=== PATIENT | female | born 2000 | race Two or more races ===

== ENCOUNTER 2021-11-28 21:32 | Emergency (ER) | payer MEDICAID, SELFPAY ==
--- NOTE | ~2021-11-28 | XR_ITS ---
EXAMINATION: XR KNEE, LEFT CLINICAL INFORMATION: Knee pain COMPARISON: Left knee radiographs 11/29/2013 TECHNIQUE: Four views of the left knee. FINDINGS: Mild irregularity of the subchondral bone plate at the site of a prior osteochondral injury of the lateral femoral condyle. No acute fracture, dislocation, or knee joint effusion. Joint spaces appear maintained. No osteophyte formation or osseous lesion. XR/XR knee LT 4V IMPRESSION: 1. No acute osseous injury or joint effusion. 2. Mild irregularity of the subchondral bone plate in the weightbearing lateral femoral condyle at the site of the previous osteochondral injury in 2013.
[2021-11-28 21:43] VITALS: BP 130/93; PULSE 88; RESP 20; TEMP 36.7; O2SAT 99; BMI 22.3
[2021-11-28] MEDS: Acetaminophen 325 MG TABLET 650 MG PO (21:48)
--- NOTE | 2021-11-29 00:33 | ED_ITS ---
HPI - Extremity Injury (Lower) General Chief Complaint: Extremity Injury, Lower Stated Complaint: fall - knee pain Time Seen by Provider: 11/29/21 00:24 Source: patient Mode of arrival: ambulatory Limitations: no limitations History of Present Illness HPI Narrative: 21-year-old female here with left knee pain after twisting her knee while dancing 2 days ago. Since then pain and swelling that is worsened with weight- bearing. No numbness, tingling, weakness, redness or warmth. Related Data Allergies Allergy/AdvReac Type Severity Reaction Status Date / Time No Known Allergies Allergy Verified 11/28/21 21:47 Review of Systems Review of Systems: Yes all other systems are reviewed and are negative Constitutional: Constitutional: Reports no additional constitutional complaints, Denies body ache(s), Denies chills, Denies fever(s), Denies headache(s) and Denies weakness Eyes: Eyes: Reports no additional eye complaints and Denies change in vision ENT: Reports system reviewed and no additional complaints, except as documented, Denies dizziness, Denies headache(s), Denies nasal congestion, Denies nasal discharge and Denies neck pain Cardiovascular: Cardiovascular: Reports no additional cardiovascular complaints, Denies chest pain, Denies leg edema and Denies dyspnea Respiratory: Respiratory: Reports no additional respiratory complaints, Denies cough and Denies dyspnea Gastrointestinal: Gastrointestinal: Reports no additional gastrointestinal complaints, Denies abdominal pain, Denies diarrhea, Denies nausea and Denies vomiting Genitourinary: Genitourinary: Reports no additional female genitourinary complaints and Denies urinary incontinence Musculoskeletal: Musculoskeletal: Reports no additional musculoskeletal complaints, Denies back pain, Reports arthralgias, Denies joint swelling, Denies neck pain, Denies numbness and Denies tingling Integumentary/Breasts: Skin/Breast: Reports system reviewed and no additional complaints, except as docu and Denies rash Neurologic: Reports system reviewed and no additional complaints, except as documented, Denies Abnormal speech present, Denies dizziness, Denies headache(s), Denies numbness, Denies tingling and Denies weakness PMFSH Past Medical History Attestation statement: The following information was validated with the patient. Source: old records reviewed and nursing notes reviewed Social History Social History Advance Directives: No Advance Directives Information Provided: Yes Physical Exam Vital Signs: Vital Signs: Last Vital Signs Temp 98.1 F 11/28/21 21:43 Pulse 88 11/28/21 21:43 Resp 20 11/28/21 21:43 BP 130/93 H 11/28/21 21:43 Pulse Ox 99 11/28/21 21:43 O2 Del Method 11/28/21 21:43 BMI result Body Mass Index 22.3 Const: General: cooperative, healthy appearing, comfortable and no acute distress Orientation/consciousness: patient oriented x3 Limitations: no limitations HEENT: Head: Yes normal to inspection Ears: hearing grossly normal bilaterally Eyes: General: appearance normal, both eyes and all related structures Resp: Effort & Inspection: normal respiratory effort Cardio: Peripheral pulses: Peripheral pulses 2+ throughout Neuro: General: patient oriented x3, moves all extremities, no focal motor def icits and normal sensation to monofilament Cognition (Neuro): normal cognition Speech: No Abnormal speech present Gait exam (Neuro): Normal gait present Extrem: Other: There is tenderness the left lateral and medial knee. There is slight swelling. There is full range of motion. There is no ligamental laxity. There is no warmth or redness. Neurovascularly intact distally General: Yes normal to inspection Course Course Course Narrative: X-ray show no acute bony abnormality. Likely sprain. Patient placed in Román wra p and given crutches for home. Reviewed rice. Reviewed worrisome signs and symptoms of when to return to the emergency department. Comfortable discharge home. MDM - Extremity Injury (Lower) MDM Narrative Medical decision making narrative: 21-year-old female here with left knee pain after twisting injury 2 days ago. Will check x-rays Medical Records Attestation: I reviewed the patient's medical records. Lab Data Attestation: I reviewed the patient's lab results. Imaging Data knee xraay: Attestation: I personally reviewed and interpreted this imaging study as follows: Radiologist's impression: [address] [address] XRay Report Signed Patient: Elke Corcoran MR#: [id number] : 2000 Acct:[id number] Age/Sex: 21 / F ADM Date: 11/28/21 Loc: HO.ED Attending Dr: Ordering Physician: Linette ED Physician Date of Service: 11/28/21 Procedure(s): XR knee LT 4V Accession Number(s): [id number] cc: Generic ED Physician~ EXAMINATION: XR KNEE, LEFT CLINICAL INFORMATION: Knee pain? COMPARISON: Left knee radiographs 11/29/2013? TECHNIQUE: Four views of the left knee. FINDINGS: Mild irregularity of the subchondral bone plate at the site of a prior osteochondral injury of the lateral femoral condyle. No acute fracture, dislocation, or knee joint effusion. Joint spaces appear maintained. No osteophyte formation or osseous lesion.? XR/XR knee LT 4V IMPRESSION: ? 1. No acute osseous injury or joint effusion. 2. Mild irregularity of the subchondral bone plate in the weightbearing lateral femoral condyle at the site of the previous osteochondral injury in 2013. ? Procedures Procedure Narrative Procedure Narrative: Román wrap, crutches Discharge Plan Discharge Clinical Impression: Knee sprain Patient Disposition: Home, Self-Care Instructions: Knee Sprain (ED) Additional Instructions: Rest Ice, elevate the limb Motrin for pain as needed Limit weight-bearing until able to bear weight without experiencing any pain Referrals: [facility] [Primary Care Provider] - 1 week (For persistent symptoms) Interventions: ED Discharge Assessment Last Done: 11/29/21 00:48
== END 2021-11-29 01:06 | disposition home or self-care (01) ==
PROVIDERS: Emergency Provider Emergency Medicine
DX: S83.92XA Sprain of unspecified site of left knee, initial encounter (principal); M25.562 Pain in left knee; X50.1XXA Overexertion from prolonged static or awkward postures, initial encounter; Y93.9 Activity, unspecified; Y92.9 Unspecified place or not applicable; Y99.9 Unspecified external cause status
CPT/HCPCS: 73564; 99283

== ENCOUNTER 2021-12-13 13:20 | Emergency (ER) | payer MEDICAID, SELFPAY ==
--- NOTE | ~2021-12-13 | XR_ITS ---
EXAMINATION: XR CHEST CLINICAL INFORMATION: Cough with sputum COMPARISON: None TECHNIQUE: 2 views of the chest were obtained. FINDINGS: Suspected mild bronchial wall thickening in the right lower lung. The lungs are otherwise clear. No airspace consolidation, pleural effusion, or pneumothorax. The cardiomediastinal silhouette is within normal limits. No acute osseous injury. XR/XR chest 2V IMPRESSION: 1. Suspected mild bronchial wall thickening in the right lower lung lung. No airspace consolidation or pleural effusions.
[2021-12-13 14:48] VITALS: BP 133/83; PULSE 89; RESP 18; TEMP 36.8; O2SAT 99; BMI 23.3
[2021-12-13 15:03] LABS: MANUAL DIFF FLAG NO
[2021-12-13 15:07] LABS: Basophils Percent Auto 0.3 % (0-2); Eosinophils Absolute Auto 0.1 X10*3/uL (0.0-0.4); Eosinophils Percent Auto 0.8 % (0-4); Hematocrit 34.1 % (37.0-47.0); Hemoglobin 10.4 g/dl (12.0-16.0); Imm Gran Abs Auto 0.03 X10*3/uL (0.00-0.03); Imm Gran Pct Auto 0.3 % (0.0-0.4); Lymphocytes Absolute Auto 3.1 X10*3/uL (1.2-4.9); Lymphocytes Percent Auto 26.2 % (20-40); Mean Corpuscular HGB Conc 30.5 g/dl (31.0-35.0); Mean Corpuscular Hemoglobin 22.1 pg (27.0-33.0); Mean Corpuscular Volume 72.6 fL (80.0-98.0); Mean Platelet Volume 10.8 fL (9.4-12.3); Monocytes Absolute Auto 0.7 X10*3/uL (0.1-1.2); Monocytes Percent Auto 6.2 % (2-11); Neutrophils Percent Auto 66.2 % (45-73); Platelet Count 264 X10*3/uL (160-400); Red Cell Distribution Width 17.2 % (11.0-16.0)
[2021-12-13 15:15] LABS: Strep A Nucleic Acid Negative (Negative)
[2021-12-13 15:18] LABS: Anion Gap 12 (12-20); Blood Urea Nitrogen 9 mg/dL (9-16); Calcium 9.1 mg/dL (8.4-10.2); Carbon Dioxide 23 mmol/L (22-29); Chloride 105 mmol/L (96-108); Creatinine Clr Calc Pharmacy 99.4; Estimated Glomerular Filt Rate > 60; Glucose Random 117 mg/dL (60-115); Potassium 3.8 mmol/L (3.3-5.1); Sodium 136 mmol/L (135-145)
[2021-12-13 15:20] LABS: COVID-19 Test Negative (Negative); IDNOW Serial# 16C4AD1C; Influenza A Negative (Negative); Influenza B2 Negative (Negative)
--- NOTE | 2021-12-13 18:05 | ED.URI ---
HPI - URI/Sore Throat General Chief Complaint: Upper Respiratory Symptoms Stated Complaint: Fever/Nausea Time Seen by Provider: 12/13/21 16:05 History of Present Illness HPI Narrative: Patient complains of mild sore throat, cough, sputum for several days, intermittent episodes of wheezing and chest tightness, but no shortness of breath or chest tightness now no chest pain, in addition there was 1 episode of vomiting after a coughing spell but otherwise no nausea vomiting diarrhea or abdominal pain Related Data Previous Rx's Medication Instructions Recorded acetaminophen 500 mg tablet 1,000 mg PO QID PRN pain or fever 12/13/21 #30 tabs albuterol sulfate 90 mcg/actuation 2 puff inhalation Q4-6H PRN 12/13/21 aerosol inhaler shortness of breath or wheezing #6.7 grams azithromycin 250 mg tablet 250 mg PO DAILY 4 days #4 tabs 12/13/21 (Zithromax) prednisone 20 mg tablet 60 mg PO DAILY 3 days #9 tabs 12/13/21 Allergies Allergy/AdvReac Type Severity Reaction Status Date / Time No Known Allergies Allergy Verified 12/13/21 14:48 Review of Systems Review of Systems: Positive for cough runny nose sputum sore throat Negative no fever no chills no dizziness no weakness no fainting no feeling faint no headache no stiff neck no chest pain no shortness of breath now no abdominal pain no nausea vomiting or diarrhea no dysuria no skin rash Yes all other systems are reviewed and are negative [facility] Past Medical History Source: nursing notes reviewed Social History Social History Advance Directives: No Advance Directives Information Provided: Yes Physical Exam Vital Signs: Vital Signs: Last Vital Signs Temp 98.3 F 12/13/21 14:48 Pulse 89 12/13/21 14:48 Resp 18 12/13/21 14:48 BP 133/83 12/13/21 14:48 Pulse Ox 99 12/13/21 14:48 O2 Del Method 12/13/21 14:48 BMI result Body Mass Index 23.3 General appearance no acute distress The eyes no redness or discharge The sinuses nontender The pharynx is clear without redness swelling or exudate mucous membranes are moist, voice is normal Neck is supple Respiratory no distress Chest clear to auscultation bilateral Heart no murmur Abdomen soft nontender Extremities for range of motion x4 Skin no rashes Course Course Course Narrative: CBC showed a mild anemia which patient said is pre-existing and she does take iron supplementation COVID test negative, flu test negative, strep throat test negative Chest x-ray showed suspected bronchial wall thickening consistent with either reactive airway disease or infection Patient is prescribed inhaler, started on prednisone and given an antibiotic and will return for any worse difficulty breathing or any problem On discharge she is breathing comfortably and well-appearing MDM - URI/Sore Throat Lab Data Attestation: I reviewed the patient's lab results. Result diagrams: 12/13/21 14:54 12/13/21 14:54 Labs: Lab Results 12/13/21 12/13/21 12/13/21 Range/Units 14:54 14:54 14:54 WBC 12.0 H (4.8-10.8) X10*3/uL RBC 4.70 (4.20-5.50) X10*6/uL Hgb 10.4 L (12.0-16.0) g/dl Hct 34.1 L (37.0-47.0) % MCV 72.6 L (80.0-98.0) fL MCH 22.1 L (27.0-33.0) pg MCHC 30.5 L (31.0-35.0) g/dl RDW 17.2 H (11.0-16.0) % Plt Count 264 (160-400) X10*3/uL MPV 10.8 (9.4-12.3) fL Immature Gran % (Auto) 0.3 (0.0-0.4) % Neut % (Auto) 66.2 (45-73) % Lymph % (Auto) 26.2 (20-40) % Maverick % (Auto) 6.2 (2-11) % Eos % (Auto) 0.8 (0-4) % Baso % (Auto) 0.3 (0-2) % Lymph # (Auto) 3.1 (1.2-4.9) X10*3/uL Maverick # (Auto) 0.7 (0.1-1.2) X10*3/uL Eos # (Auto) 0.1 (0.0-0.4) X10*3/uL Baso # (Auto) 0.0 (0.0-0.2) X10*3/uL Abs Immat Gran (auto) 0.03 (0.00-0.03) X10*3/uL Absolute Neuts (auto) 8.0 (2.0-8.3) x10*3/uL Absolute Nucleated RBC 0.000 (0.0-0.012) X10*3/uL Nucleated RBC % (auto) 0.0 (0.0-0.2) /100WBC Sodium 136 (135-145) mmol/L Potassium 3.8 (3.3-5.1) mmol/L Chloride 105 (96-108) mmol/L Carbon Dioxide 23 (22-29) mmol/L Anion Gap 12 (12-20) BUN 9 (9-16) mg/dL Creatinine 0.76 (0.5-1.4) mg/dL Estim Creat Clear Calc 99.4 Estimated GFR > 60 Random Glucose 117 H (60-115) mg/dL Calcium 9.1 (8.4-10.2) mg/dL COVID-19 ([facility]) (Negative) COVID-19 Clin Com Influenza Type A (RADHA) Negative (Negative) Influenza Type B (RADHA) Negative (Negative) Influenza A & B Note See Note S. pyogenes GrpA RADHA (Negative) 12/13/21 12/13/21 Range/Units 14:54 14:54 WBC (4.8-10.8) X10*3/uL RBC (4.20-5.50) X10*6/uL Hgb (12.0-16.0) g/dl Hct (37.0-47.0) % MCV (80.0-98.0) fL MCH (27.0-33.0) pg MCHC (31.0-35.0) g/dl RDW (11.0-16.0) % Plt Count (160-400) X10*3/uL MPV (9.4-12.3) fL Immature Gran % (Auto) (0.0-0.4) % Neut % (Auto) (45-73) % Lymph % (Auto) (20-40) % Maverick % (Auto) (2-11) % Eos % (Auto) (0-4) % Baso % (Auto) (0-2) % Lymph # (Auto) (1.2-4.9) X10*3/uL Maverick # (Auto) (0.1-1.2) X10*3/uL Eos # (Auto) (0.0-0.4) X10*3/uL Baso # (Auto) (0.0-0.2) X10*3/uL Abs Immat Gran (auto) (0.00-0.03) X10*3/uL Absolute Neuts (auto) (2.0-8.3) x10*3/uL Absolute Nucleated RBC (0.0-0.012) X10*3/uL Nucleated RBC % (auto) (0.0-0.2) /100WBC Sodium (135-145) mmol/L Potassium (3.3-5.1) mmol/L Chloride (96-108) mmol/L Carbon Dioxide (22-29) mmol/L Anion Gap (12-20) BUN (9-16) mg/dL Creatinine (0.5-1.4) mg/dL Estim Creat Clear Calc Estimated GFR Random Glucose (60-115) mg/dL Calcium (8.4-10.2) mg/dL COVID-19 ([facility]) Negative (Negative) COVID-19 Clin Com See Note Influenza Type A (RADHA) (Negative) Influenza Type B (RADHA) (Negative) Influenza A & B Note S. pyogenes GrpA RADHA Negative (Negative) Discharge Plan Discharge Clinical Impression: Bronchitis Patient Disposition: Home, Self-Care Additional Instructions: If you feel chest tightness or wheezing try the albuterol We gave a few days of steroid to reduce inflammation in her chest Zithromax antibiotic for bronchitis Return any time difficulty breathing any worse condition or any concerns If symptoms continue follow with your doctor Prescriptions: New azithromycin [Zithromax] 250 mg tablet 250 mg PO DAILY 4 Days Qty: 4 0RF Rx Instructions: start on day 2 of therapy acetaminophen 500 mg tablet 1,000 mg PO QID PRN (Reason: pain or fever) Qty: 30 0RF albuterol sulfate 90 mcg/actuation HFA aerosol inhaler 2 puff inhalation Q4-6H PRN (Reason: shortness of breath or wheezing) Qty: 6.7 0RF prednisone 20 mg tablet 60 mg PO DAILY 3 Days Qty: 9 0RF Interventions: ED Discharge Assessment Last Done: 12/13/21 18:50 Discharge Date/Time: 12/13/21 18:50
[2021-12-13] MEDS: Azithromycin 500 MG TABLET PO (18:18)
[2021-12-13] MEDS: predniSONE 20 MG TABLET 60 MG PO (18:18)
== END 2021-12-13 18:50 | disposition home or self-care (01) ==
PROVIDERS: Emergency Provider Emergency Medicine
DX: J40 Bronchitis, not specified as acute or chronic (principal); R50.9 Fever, unspecified; R05.9 Cough, unspecified; Z20.822 Contact with and (suspected) exposure to COVID-19; Z79.899 Other long term (current) drug therapy
CPT/HCPCS: 71046; 80048; 85025; 87502; 87635; 87651; 99283

== ENCOUNTER 2023-01-23 15:46 | Emergency (ER) | payer MEDICAID, SELFPAY ==
[2023-01-23 16:14] VITALS: BP 121/75; PULSE 71; RESP 16; TEMP 36.6; O2SAT 99; BMI 22.9
--- NOTE | 2023-01-23 16:59 | ED_ITS ---
HPI - General Adult General Chief complaint: Allergic Reaction Stated complaint: rash on body Time Seen by Provider: 01/23/23 16:59 Source: patient and old records reviewed Mode of arrival: ambulatory Limitations: no limitations History of Present Illness HPI narrative: Patient is a 22 year old assigned female at with a history of asthma presenting to the emergency department today with a rash to her arms and neck after using head and shoulder shampoo 4 days ago. Patient states that she has had a rash to her bilateral arms and neck after using head and shoulders 4 days ago. Patient states that she also feels more wheezy lately and does not have an inhaler at home. Patient denies any dizziness, lightheadedness, abdominal pain, nausea, vomiting, fever, chills, blurry vision, double vision, loss of vision, chest pain, difficulty breathing, shortness of breath, back pain, night sweats, pain with urination, increased urinary frequency, increased urinary urgency, blood in her urine or stool, syncope or a near syncopal episode, recent trauma or falls, bowel incontinence, bladder incontinence, bowel retention, bladder retention, or any other complaints at this time. Onset (ago): day(s) (4) Location: neck, left, right and upper extremity Severity: mild Severity scale (1-10): 3 Relieving factors: none Exacerbating factors: none Associated symptoms: rash Treatments prior to arrival: none Related Data Previous Rx's Medication Instructions Recorded acetaminophen 500 mg tablet 1,000 mg PO QID PRN pain or fever 12/13/21 #30 tabs albuterol sulfate 90 mcg/actuation 2 puff inhalation Q4-6H PRN 12/13/21 aerosol inhaler shortness of breath or wheezing #6.7 grams azithromycin 250 mg tablet 250 mg PO DAILY 4 days #4 tabs 12/13/21 (Zithromax) prednisone 20 mg tablet 60 mg PO DAILY 3 days #9 tabs 12/13/21 albuterol sulfate 90 mcg/actuation 1 inh inhalation QID PRN shortness 01/23/23 aerosol inhaler of breath or wheezing #8.5 grams prednisone 20 mg tablet 20 mg PO DAILY 7 days #7 tabs 01/23/23 Allergies Allergy/AdvReac Type Severity Reaction Status Date / Time No Known Allergies Allergy Verified 12/13/21 14:48 Review of Systems Constitutional: Constitutional: Reports no additional constitutional complaints, Denies chills, Denies fever(s) and Denies night sweats Eyes: Eyes: Reports no additional eye complaints, Denies blurry vision, Denies change in vision, Denies diplopia, Denies eye discharge, Denies loss of vision and Denies eye pain ENT: Denies dizziness Cardiovascular: Cardiovascular: Reports no additional cardiovascular complaints, Denies chest pain, Denies lightheadedness, Denies Loss of Consciousness and Denies dyspnea Respiratory: Respiratory: Reports no additional respiratory complaints, Denies dyspnea and Reports wheezing Gastrointestinal: Gastrointestinal: Reports no additional gastrointestinal complaints, Denies abdominal pain, Denies melena, Denies hematochezia, Denies change in bowel habits and Denies change in stool character Genitourinary: Genitourinary: Denies hematuria, Denies urinary frequency, Denies dysuria, Denies urinary incontinence, Denies urinary hesitancy and Denies urinary urgency Musculoskeletal: Musculoskeletal: Reports no additional musculoskeletal complaints, Denies numbness and Denies tingling Integumentary/Breasts: Comments: rash to bilateral upper extremities and neck Neurologic: Denies dizziness, Denies loss of vision, Denies numbness and Denies tingling Psychiatric: Psychiatric: Reports no additional psychiatric complaints Endocrine: Endocrine: Reports no additional endocrine complaints Hematologic/Lymphatic: Hematologic/Lymphatic: Reports no additional hematologic/lymphatic complaints Allergic/Immunologic: Allergic/Immunologic: Reports no additional allergic/immunologic complaints and Reports wheezing PMFSH Past Medical History Attestation statement: The following information was validated with the patient. Source: old records reviewed and nursing notes reviewed Social History Social History Advance Directives: No Advance Directives Information Provided: Yes Physical Exam ED Vital Signs: Vital Signs - 24 hr 01/23/23 16:14 Temperature 97.9 F Pulse Rate 71 Respiratory Rate 16 Blood Pressure 121/75 Pulse Oximetry 99 Oxygen Delivery Method Room Air BMI result Body Mass Index 22.9 Const General: cooperative, no acute distress, alert and awake Nutritional Appearance: well nourished Orientation/consciousness: patient oriented x3 Limitations: no limitations HENMT Head: Yes normal to inspection and Yes atraumatic Ears: hearing grossly normal bilaterally and external ears normal General nose exam: Normal external nose present, no nasal discharge noted and no epistaxis Face and sinus: Yes normal facial exam, No abrasion and No laceration Mouth: Normal oral and palatal mucosa present, no drooling and no muffled voice Eyes General: appearance normal, both eyes and all related structures Periorbital: periorbital findings normal Eyelids: Yes eyelids normal Conjunctivae: conjunctivae normal Pupils: Equal, round and reactive pupils present EOM: EOMs intact bilaterally Neck Neck: Yes normal visual inspection, Yes full ROM and Yes no lymphadenopathy Chest Chest palpation & inspection: normal inspection of the chest Resp Effort & Inspection: normal respiratory effort and able to speak in complete sentences Auscultation: wheezes throughout Cardio Rate: regular rate Rhythm: regular rhythm GI Inspection: Yes normal to inspection Skin Other: contact dermatitis present to the bilateral upper extremities and neck Neuro General: patient oriented x3 and moves all extremities Cranial nerves: Yes Equal, round and reactive pupils present Cognition (Neuro): normal cognition Motor exam (neuro): 5/5 motor strength present throughout Sensory Exam: Normal double simultaneous stimulation for sensation Coordination: [id number] test normal Extrem General: Yes normal to inspection, Yes full ROM and Yes capillary refill normal Psych Appearance: grossly normal Mental Status: mental status grossly normal Affect: normal affect Attitude: cooperative Thought process: Normal thought process present Thought content: Normal thought content present Insight: Good insight present (Psych) Medications Administered Discontinued Medications Generic Name Dose Route Start Last Admin Trade Name Brie PRN Reason Stop Dose Admin Albuterol Sulfate 2 puff 01/23/23 17:03 01/23/23 17:18 Albuterol Sulfate 90 Mcg 8 Gm Inhaler INHALE 01/23/23 17:04 2 puff ONCE ONE Administration Diphenhydramine HCl 25 mg 01/23/23 17:03 01/23/23 17:17 Diphenhydramine Hcl 25 Mg Capsule PO 01/23/23 17:04 25 mg ONCE ONE Administration Methylprednisolone Sodium Succinate 60 mg 01/23/23 17:03 01/23/23 17:17 Methylprednisolone Sod Succ 125 Mg/2 Ml Vial IVPUSH 01/23/23 17:04 60 mg ONCE ONE Administration Medical Decision Making Medical Decision Making MDM Narrative: Patient is a 22 year old assigned female at with a history of asthma presenting to the emergency department today with wheezing and a rash. Patient's physical exam was as noted in the physical exam portion of this note. I explained my physical exam findings to the patient. I answered all questions asked by the patient. Patient received solu-medrol, benadryl, and an albuterol inhaler while in the department which she stated helped her symptoms significantly. I stressed the importance of the patient taking her medication as prescribed. I stressed the importance of the patient following up with her primary care provider. I stressed the importance of the patient returning to the emergency department immediately if her symptoms were to worsen or if she were to develop any dizziness, shortness of breath, difficulty breathing, chest pain, blurry vision, loss of vision, nausea, vomiting, abdominal pain, fever, chills, back pain, or any other complaints. Patient verbalized agreement and understanding with this treatment plan and discharge. Differential Diagnosis Differential Diagnoses: The differential diagnosis associated with the presentation includes contact dermatitis eczema asthma External Record Review External record reviewed: Other (patient's pervious visits reviewed.) Prescription Management I considered prescription management with: Other (patient prescribed an oral steroid and an albuterol inhaler) Chronic Conditions Patient?s care impacted by: Other (asthma) Discharge Plan Discharge Clinical Impression: Contact dermatitis, Asthma Patient Disposition: Home, Self-Care Instructions: Asthma (DC), Contact Dermatitis (DC) Additional Instructions: Follow up with your primary care provider and if the rash continues after your finish your prednisone, a highway maintenance technician. Return to the emergency department immediately if your symptoms worsen or if you develop any dizziness, shortness of breath, difficulty breathing, chest pain, blurry vision, loss of vision, nausea, vomiting, abdominal pain, fever, chills, back pain, or any other complaints. Prescriptions: New prednisone 20 mg tablet 20 mg PO DAILY 7 Days Qty: 7 0RF albuterol sulfate 90 mcg/actuation HFA aerosol inhaler 1 inh inhalation QID PRN (Reason: shortness of breath or wheezing) Qty: 8.5 0RF No Action azithromycin [Zithromax] 250 mg tablet 250 mg PO DAILY 4 Days Qty: 4 0RF Rx Instructions: start on day 2 of therapy acetaminophen 500 mg tablet 1,000 mg PO QID PRN (Reason: pain or fever) Qty: 30 0RF albuterol sulfate 90 mcg/actuation HFA aerosol inhaler 2 puff inhalation Q4-6H PRN (Reason: shortness of breath or wheezing) Qty: 6.7 0RF prednisone 20 mg tablet 60 mg PO DAILY 3 Days Qty: 9 0RF Referrals: [facility] [Provider Group] (Call to establish and follow up with a highway maintenance technician if your rash persists.) [facility] [place]] (Call to establish and follow up with a primary care provider. If you already have a primary care provider, please follow up with them.) [facility] [place]Provider Group] (Call to establish and follow up with a primary care provider. If you already have a primary care provider, please follow up with them.) [facility] [Provider Group] (Call to establish and follow up with a primary care provider. If you already have a primary care provider, please follow up with them.) Interventions: ED Discharge Assessment Last Done: 01/23/23 17:43 Discharge Date/Time: 01/23/23 17:44 Print Language: Comoran
[2023-01-23] MEDS: methylPREDNISolone Sod Succ 125 MG/2 ML VIAL 60 MG IVPUSH (17:17)
[2023-01-23] MEDS: diphenhydrAMINE HCL 25 MG CAPSULE PO (17:17)
[2023-01-23] MEDS: Albuterol Sulfate 90 MCG 8 GM INHALER 2 PUFF INHALE (17:18)
--- NOTE | 2023-01-23 17:21 | PC.NURSE ---
pt medicated per AUG, I teaching provided by [employer], [employer] at bedside with spacer
== END 2023-01-23 17:44 | disposition home or self-care (01) ==
PROVIDERS: Emergency Provider Internal Medicine
DX: L25.9 Unspecified contact dermatitis, unspecified cause (principal); J45.909 Unspecified asthma, uncomplicated; Z79.899 Other long term (current) drug therapy
CPT/HCPCS: 96374; 96375; 99282; 99284; J2930

== ENCOUNTER 2025-02-20 14:52 | Emergency (ER) | payer MEDICAID, SELFPAY ==
--- NOTE | ~2025-02-20 | XR_ITS ---
EXAMINATION: XR FOOT 3 OR MORE VIEWS LEFT HISTORY: infection to bottom of toes COMPARISON: There are no prior studies available for comparison. FINDINGS: Three views of the left foot are submitted. Osseous mineralization is normal. There is no fracture or dislocation. The joint spaces are preserved. The soft tissues are unremarkable. XR/XR foot LT min 3V IMPRESSION: Unremarkable examination of the left foot. Electronically signed by: Mateo Nava MD 02/20/2025 03:31 PM EDT
[2025-02-20 15:02] VITALS: BP 158/65; PULSE 103; RESP 16; TEMP 36.6; O2SAT 97; BMI 24.6
--- NOTE | 2025-02-20 15:05 | ED.SKABFB ---
HPI - Skin/Abscess/Foreign Bdy General Chief complaint: Skin/Abscess/Foreign Body Stated complaint: bilateral foot infection, hard to walk Time Seen by Provider: 02/20/25 18:01 Source: patient Mode of arrival: ambulatory History of Present Illness ED Provider: Steven PATTRESON narrative: 24-year-old female comes in with complaints of athlete's foot to bilateral feet, left greater than right at the base of toes 2 through 4 on the plantar surface. She denies any associated fevers, chills. Related Data Previous Rx's ?Medication ?Instructions ?Recorded acetaminophen 500 mg tablet 1,000 mg (2 x 500 mg) PO QID PRN 12/13/21 pain or fever #30 tabs albuterol sulfate 90 mcg/actuation 2 puff inhalation Q4-6H PRN 12/13/21 aerosol inhaler shortness of breath or wheezing #6.7 grams azithromycin 250 mg tablet 250 mg PO DAILY 4 days #4 tabs 12/13/21 (Zithromax) prednisone 20 mg tablet 60 mg (3 x 20 mg) PO DAILY 3 days 12/13/21 #9 tabs albuterol sulfate 90 mcg/actuation 1 inh inhalation QID PRN shortness 01/23/23 aerosol inhaler of breath or wheezing #8.5 grams prednisone 20 mg tablet 20 mg PO DAILY 7 days #7 tabs 01/23/23 miconazole nitrate 2 % topical 1 appl topical BID #42.5 grams 02/20/25 cream (Antifungal (miconazole)) Allergies Allergy/AdvReac Type Severity Reaction Status Date / Time No Known Allergies Allergy Verified 02/20/25 15:02 Review of Systems Review of Systems: Pertinent positives and negatives as stated in HPI PMFSH Past Medical History Attestation statement: The following information was validated with the patient. Source: nursing notes reviewed Social History Social History Alcohol intake: never Smoked in Last 30 Days: No Use of substances other than those prescribed or required for medical reasons: No Advance Directives: No Advance Directives Information Provided: No Patient : No Physical Exam Exam: Exam: VITAL SIGNS: Reviewed. GENERAL: Well developed, well nourished, in no acute distress. HEAD: Normocephalic/atraumatic EYES: PERRLA, EOMI LUNGS: Normal breath sounds. No adventitious sounds or accessory muscle use. CARDIOVASCULAR: Regular rate and rhythm without noted murmurs ABDOMEN: Soft, non-tender, non-distended with bowel sounds. MUSCULOSKELETAL: No tenderness, deformities, or effusions noted on gross inspection. EXTREMITIES: No cyanosis, clubbing or edema. SKIN: Inspection of the skin reveals no rashes NEUROLOGIC: Alert and oriented x 4. Strength and sensation to light touch were grossly intact x 4. Vital Signs: Vital Signs: Last Vital Signs Temp 97.8 F 02/20/25 15:02 Pulse 85 02/20/25 18:21 Resp 18 02/20/25 18:21 BP 135/91 H 02/20/25 18:21 Pulse Ox 100 02/20/25 18:21 O2 Del Method Nasal Cannula 02/20/25 18:21 BMI result Body Mass Index 24.6 Course Course Course Narrative: This is a Rapid Medical Examination (RME) performed by Agnes Anderson PA-C in triage. Full HPI, ROS, assessment and treatment plan per primary provider in the Main ED. Hx: 24 yo F here with concerns of infection to the bottom of her left 2nd/3rd toes. using otc athletes foot cream w/o improvement. denies walking barefoot in public/showers. reports cleaning while wearing crocs 1 week ago and this began shortly after. PE/vitals: see below Plan: basic labs, xr Medical Decision Making Medical Decision Making [facility] Narrative: 24-year-old female with history and clinical presentation, DD DX: Fungal infection 1846: My interpretation is in agreement with radiology's impression of the left foot x-ray and that there is no acute abnormal finding. I reviewed and interpreted all investigations and there is no leukocytosis, there is chronic stable anemia no thrombocytopenia. There is no demonstrate SU/electrolyte or liver enzyme derangements. Patient is encouraged to follow-up with the primary care doctor, she will be provided with a prescription for athlete's foot, she is otherwise well-appearing since/nontoxic. Patient does not meet inpatient level of care. Differential Diagnosis Differential Diagnoses: The differential diagnosis associated with the presentation includes See above Admission/Observation Consideration of admission/observation: Escalation of care including admission/observation considered See above Lab Data [facility] Lab Attestation statement: I reviewed the patient's lab results. See above 02/20/25 15:40 02/20/25 15:40 Labs: Lab Results 02/20/25 Range/Units 15:40 WBC 7.8 (4.8-10.8) X10*3/uL RBC 4.71 (4.20-5.50) X10*6/uL Hgb 11.1 L (12.0-16.0) g/dl Hct 35.6 L (37.0-47.0) % MCV 75.6 L (80.0-98.0) fL MCH 23.6 L (27.0-33.0) pg MCHC 31.2 (31.0-35.0) g/dl RDW 16.6 H (11.0-16.0) % Plt Count 287 (160-400) X10*3/uL MPV 10.8 (9.4-12.3) fL Immature Gran % (Auto) 0.5 H (0.0-0.4) % Neut % (Auto) 65.1 (45-73) % Lymph % (Auto) 26.7 (20-40) % [place] % (Auto) 6.3 (2-11) % Eos % (Auto) 0.9 (0-4) % Baso % (Auto) 0.5 (0-2) % Lymph # (Auto) 2.1 (1.2-4.9) X10*3/uL [place] # (Auto) 0.5 (0.1-1.2) X10*3/uL Eos # (Auto) 0.1 (0.0-0.4) X10*3/uL Baso # (Auto) 0.0 (0.0-0.2) X10*3/uL Abs Immat Gran (auto) 0.04 H (0.00-0.03) X10*3/uL Absolute Neuts (auto) 5.1 (2.0-8.3) x10*3/uL Absolute Nucleated RBC 0.000 (0.0-0.012) X10*3/uL Nucleated RBC % (auto) 0.0 (0.0-0.2) /100WBC Sodium 140 (135-145) mmol/L Potassium 4.1 (3.3-5.1) mmol/L Chloride 111 H (96-108) mmol/L Carbon Dioxide 23 (22-29) mmol/L Anion Gap 10 L (12-20) BUN 10 (9-16) mg/dL Creatinine 0.75 (0.5-1.4) mg/dL Estim Creat Clear Calc 98.1 Estimated GFR > 60 Random Glucose 103 (60-115) mg/dL Calcium 8.9 (8.4-10.2) mg/dL Total Bilirubin 0.7 (0.0-1.0) mg/dL AST 22 (5-31) U/L ALT 19 (0-31) U/L Alkaline Phosphatase 72 (39-117) U/L Total Protein 7.4 (6.5-8.0) g/dL Albumin 4.5 (3.5-5.0) g/dL Independent Interpretation I performed an independent interpretation of an: Plain X-Ray Interpretation: See above Discharge Plan Discharge Clinical Impression: Fungal infection Patient Disposition: Home, Self-Care Instructions: Miconazole (On the skin) (Lotrimin AF, Micatin, Desenex, Antifungal) Prescriptions: New miconazole nitrate [Antifungal (miconazole)] 2 % cream 1 appl topical BID Qty: 42.5 0RF No Action azithromycin [Zithromax] 250 mg tablet 250 mg PO DAILY 4 Days Qty: 4 0RF Rx Instructions: start on day 2 of therapy acetaminophen 500 mg tablet 1,000 mg PO QID PRN (Reason: pain or fever) Qty: 30 0RF albuterol sulfate 90 mcg/actuation HFA aerosol inhaler 2 puff inhalation Q4-6H PRN (Reason: shortness of breath or wheezing) Qty: 6.7 0RF prednisone 20 mg tablet 60 mg PO DAILY 3 Days Qty: 9 0RF prednisone 20 mg tablet 20 mg PO DAILY 7 Days Qty: 7 0RF albuterol sulfate 90 mcg/actuation HFA aerosol inhaler 1 inh inhalation QID PRN (Reason: shortness of breath or wheezing) Qty: 8.5 0RF Print Language: Trinidadian
[2025-02-20 15:44] LABS: MANUAL DIFF FLAG NO
[2025-02-20 15:46] LABS: Hematocrit 35.6 % (37.0-47.0); Hemoglobin 11.1 g/dl (12.0-16.0); Imm Gran Abs Auto 0.04 X10*3/uL (0.00-0.03); Imm Gran Pct Auto 0.5 % (0.0-0.4); Lymphocytes Absolute Auto 2.1 X10*3/uL (1.2-4.9); Mean Corpuscular HGB Conc 31.2 g/dl (31.0-35.0); Mean Corpuscular Hemoglobin 23.6 pg (27.0-33.0); Mean Corpuscular Volume 75.6 fL (80.0-98.0); NRBC Abs Auto 0.000 X10*3/uL (0.0-0.012); NRBC Pct Auto 0.0 /100WBC (0.0-0.2); Platelet Count 287 X10*3/uL (160-400); Red Blood Count 4.71 X10*6/uL (4.20-5.50); White Blood Count 7.8 X10*3/uL (4.8-10.8)
[2025-02-20 16:00] LABS: Alanine Aminotransferase 19 U/L (0-31); Albumin Level 4.5 g/dL (3.5-5.0); Alkaline Phosphatase 72 U/L (39-117); Anion Gap 10 (12-20); Aspartate Amino Transferase 22 U/L (5-31); Blood Urea Nitrogen 10 mg/dL (9-16); Calcium 8.9 mg/dL (8.4-10.2); Carbon Dioxide 23 mmol/L (22-29); Chloride 111 mmol/L (96-108); Creatinine Clr Calc Pharmacy 98.1; Estimated Glomerular Filt Rate > 60; Potassium 4.1 mmol/L (3.3-5.1); Sodium 140 mmol/L (135-145); Total Protein 7.4 g/dL (6.5-8.0)
[2025-02-20 18:21] VITALS: BP 135/91; PULSE 85; RESP 18; O2SAT 100
--- NOTE | 2025-02-20 18:23 | PC.NURSE ---
24 F presents to ED with rash to bilat foot near toes, red bumps. Pt sts it's been going on for 1 week, has been applying athletes foot cream but it has not gotten better. Red bumps noted around L foot toes and nails on bilat toe noted to be yellow. A+Ox4, calm, cooperative. Pt sts hurts to walk on feet but denies pain at this time. RR even and unlabored, denies CP or SOB.
[2025-02-20 19:15] VITALS: BP 111/68; PULSE 70; RESP 18; TEMP 37.1; O2SAT 99
[2025-02-20 19:26] VITALS: BP 111/68; PULSE 70; RESP 18; TEMP 37.1; O2SAT 99
== END 2025-02-20 19:27 | disposition home or self-care (01) ==
PROVIDERS: Physician Assistant Medical; Emergency Provider Student in an Organized Health Care Education/Training Program
DX: B35.3 Tinea pedis (principal)
CPT/HCPCS: 36415; 73630; 80053; 85025; 99283; 99284

== ENCOUNTER → 2025-02-20 15:05 | Outpatient (BNV) | payer MEDICAID, SELFPAY | PROVIDERS: Visit Provider Radiology Diagnostic Radiology | DX: B35.1 Tinea unguium (principal) | CPT/HCPCS: 73630 ==

== ENCOUNTER 2025-06-01 15:35 | Emergency (ER) | payer MEDICAID, SELFPAY ==
[2025-06-01 15:41] VITALS: BP 130/92; PULSE 107; O2SAT 96
[2025-06-01 16:39] VITALS: BP 129/73; PULSE 97; RESP 16; TEMP 36.3; O2SAT 99; BMI 24.1
--- NOTE | 2025-06-01 16:40 | ED_ITS ---
HPI - Skin/Abscess/Foreign Bdy General Chief complaint: General Medical Stated complaint: Fungal infection to feet x few months Time Seen by Provider: 06/01/25 20:04 Source: patient Mode of arrival: ambulatory Limitations: no limitations History of Present Illness ED Provider: Zeb JOY HPI narrative: Patient is a 24-year-old female who presents to the Emergency Department for evaluation of a persistent bilateral foot fungal infection that began in February but has recently worsened. She was previously treated at this ED with a topical antifungal cream for 10 days, and subsequently at an urgent care where she received an oral antifungal, topical antifungal, and antibiotics. Initial improvement was noted, but symptoms have now recurred with worsening crusting, itching, and new throbbing and malodorous drainage from the dorsum of the left foot. Patient reports she only completed a 10 day course of the systemic and topical antifungals prescribed by urgent Care. No foot soaks or other home treatments have been attempted since completing the prior medication courses. She has not yet seen a aerologist. She attributes the initial occurrence to wearing someone else's Crocs while cleaning, leading to sweaty feet. The patient has not removed any of the lichenous/scabbing skin stating she read online that she should not remove this material for risk of infection. Related Data Previous Rx's ?Medication ?Instructions ?Recorded acetaminophen 500 mg tablet 1,000 mg (2 x 500 mg) PO Q ID PRN 12/13/21 pain or fever #30 tabs albuterol sulfate 90 mcg/actuation 2 puff inhalation Q 4-6H PRN 12/13/21 aerosol inhaler shortness of breath or wheez ing #6.7 grams azithromycin 250 mg tablet 250 mg PO DAILY 4 days #4 t abs 12/13/21 (Zithromax) prednisone 20 mg tablet 60 mg (3 x 20 mg) PO DAILY 3 days 12/13/21 #9 tabs albuterol sulfate 90 mcg/actuation 1 inh inhalation QI D PRN shortness 01/23/23 aerosol inhaler of breath or wheezing #8.5 g booker prednisone 20 mg tablet 20 mg PO DAILY 7 days #7 tab s 01/23/23 miconazole nitrate 2 % topical 1 appl topical BID #42. 5 grams 02/20/25 cream (Antifungal (miconazole)) clotrimazole 1 % topical cream 1 appl topical BID 4 we eks #90 12/20/25 grams doxycycline hyclate 100 mg tablet 100 mg PO BID #14 ta bs 06/01/25 fluconazole 150 mg tablet 150 mg PO QWEEK #4 tabs 05/14 Allergies Allergy/AdvReac Type Severity Reaction Status Date / Time No Known Allergies Allergy Verified 06/01/25 16:43 Review of Systems 2 Review of Systems: Yes all other systems are reviewed and are negative PMFSH Social History Social History Alcohol intake: never Advance Directives: No Advance Directives Information Provided: No Do you have a plan to hurt others: No Plan Physical Exam 2 Vital Signs: Vital Signs: Last Vital Signs Temp 97.7 F 06/01/25 19: Pulse 87 06/01/25 19:29 Resp 18 06/01/25 19:29 BP 120/83 06/01/25 19:29 Pulse Ox 99 06/01/25 19:29 O2 Del Method Room Air 06/01/25 19:29 BMI result Body Mass Index 24.1 CONSTITUTIONAL: The patient appears non-toxic, well nourished and in no acute distress. Vital signs as documented. HEAD: Atraumatic, normocephalic. EYES: EOMs grossly intact, pupils equal, conjunctiva clear, no exudate. ENT: Nares patent, no discharge. Airway patent, no audible stridor, visible mucosa is pink and moist without noted lesions. NECK: trachea is midline, no obvious masses or gross abnormalities. CHEST: Symmetric movement, normal appearance. LUNGS: Non-labored work of breathing. CARDIAC: No evidence of hypoperfusion. ABDOMEN: Nondistended, no obvious injury. : Deferred. EXTREMITIES: Moves all extremities spontaneously without reported pain. No obvious injury or deformity noted. NEURO: Alert and oriented x3, CN II-XII appear grossly intact. Cerebellar Functioning grossly intact. Speech clear and appropriate. SKIN: Severe fungal infection of bilateral feet, with superimposed infection on the dorsum of the left foot. See pictures. Warm, dry, color appropriate. No rashes or lesions noted. Course Course Course Narrative: Natalia To [employer] 06/01 1640 This is a rapid medical exam. deferred additional HPI, ROS, PE to primary provider. 24 yo female with no known medical history who has been treated several times for athletes foot over the last few months now here with complaints of yellow drainage, tactile fever and increasing pain. Will obtain labs, viral testing VSS Medical Decision Making Medical Decision Making MDM Narrative: 8:54 PM 06/01/2025 (Agnes JOY): Patient is a 24-year-old female who presents to the Emergency Department for evaluation of a persistent bilateral foot fungal infection that began in February but has recently worsened. She was previously treated at this ED with a topical antifungal cream for 10 days, and subsequently at an urgent care where she received an oral antifungal, topical antifungal, and antibiotics. Initial improvement was noted, but symptoms have now recurred with worsening crusting, itching, and new throbbing and malodorous drainage from the dorsum of the left foot. Patient reports she only completed a 10 day course of the systemic and topical antifungals prescribed by urgent Care. No foot soaks or other home treatments have been attempted since completing the prior medication courses. She has not yet seen a aerologist. She attributes the initial occurrence to wearing someone else's Crocs while cleaning, leading to sweaty feet. The patient has not removed any of the lichenous/scabbing skin stating she read online that she should not remove this material for risk of infection. On exam patient has a severe fungal infection of the bilateral feet with apparent superimposed bacterial infection of the dorsum of the left foot with tenderness and malodorous drainage. The patient's laboratory evaluation shows mild leukocytosis of 12.4, no anemia, no electrolyte abnormality, or SU. The patient's LFTs are unremarkable. The patient's viral swabs are negative. The patient will be treated with oral antibiotics, a month long course of oral antifungal, and continued topical antifungal cream. The patient will be referred to Podiatry and/or Dermatology. Lab Data 06/01/25 17:27 06/01/25 17:27 Labs: Lab Results 06/01/25 Range/Units 17: WBC 12.4 H (4.8-10.8) X10*3/uL RBC 5.45 (4.20-5.50) X10*6/uL Hgb 12.4 (12.0-16.0) g/dl Hct 39.8 (37.0-47.0) % MCV 73.0 L (80.0-98.0) fL MCH 22.8 L (27.0-33.0) pg MCHC 31.2 (31.0-35.0) g/dl RDW 17.0 H (11.0-16.0) % Plt Count 281 (160-400) X10*3/uL MPV 11.6 (9.4-12.3) fL Immature Gran % (Auto) 0.9 H (0.0-0.4) % Neut % (Auto) 65.1 (45-73) % Lymph % (Auto) 26.5 (20-40) % [place] % (Auto) 5.2 (2-11) % Eos % (Auto) 2.0 (0-4) % Baso % (Auto) 0.3 (0-2) % Lymph # (Auto) 3.3 (1.2-4.9) X10*3/uL [place] # (Auto) 0.7 (0.1-1.2) X10*3/uL Eos # (Auto) 0.3 (0.0-0.4) X10*3/uL Baso # (Auto) 0.0 (0.0-0.2) X10*3/uL Abs Immat Gran (auto) 0.11 H (0.00-0.03) X10*3/uL Absolute Neuts (auto) 8.1 (2.0-8.3) x10*3/uL Absolute Nucleated RBC 0.000 (0.0-0.012) X10*3/uL Nucleated RBC % (auto) 0.0 (0.0-0.2) /100WBC Sodium 142 (135-145) mmol/L Potassium 3.8 (3.3-5.1) mmol/L Chloride 110 H (96-108) mmol/L Carbon Dioxide 23 (22-29) mmol/L Anion Gap 13 (12-20) BUN 17 H (9-16) mg/dL Creatinine 0.85 (0.5-1.4) mg/dL Estim Creat Clear Calc 90.2 Estimated GFR > 60 Random Glucose 101 (60-115) mg/dL Calcium 9.6 D (8.4-10.2) mg/dL Total Bilirubin 0.5 (0.0-1.0) mg/dL Direct Bilirubin 0.2 (0.0-0.5) mg/dL AST 18 (5-31) U/L ALT 23 (0-31) U/L Alkaline Phosphatase 82 (39-117) U/L Total Protein 7.8 (6.5-8.0) g/dL Albumin 4.7 (3.5-5.0) g/dL Influenza Type A (PCR) NEGATIVE (Negative) Influenza Type B (PCR) NEGATIVE (Negative) RSV RNA Qual (PCR) NEGATIVE (Negative) SARS-CoV-2 RNA (RT-PCR) NEGATIVE (Negative) Discharge Plan Discharge Clinical Impression: Tinea pedis Qualifiers: Laterality: bilateral Qualified Code(s): B35.3 - Tinea pedis Patient Disposition: Home, Self-Care Instructions: Tinea Corporis (ED), Skin Yeast Infection (ED) Additional Instructions: Thank you for choosing [facility]'s Emergency Department for your care today. Thankfully your laboratory evaluation shows no evidence of a systemic infection. At this time there is no indication for admission to the hospital or continued ED observation, and it is safe to discharge you home. Your severe fungal infection of your bilateral feet requires extensive treatment and outpatient follow up. We are treating you with a 4 week course of fluconazole, we gave you a 1st dose of fluconazole here in the ED, it is extremely important that you take fluconazole once per week for the next 4 weeks. Additionally please apply the clotrimazole cream twice daily for the next 4 weeks. Please wash your feet with gentle soap and a foot scrub twice a day, and change your socks twice a day. Please wear well fitting, breathable shoes/footwear. If financially feasible, please consider purchasing new footwear as continuing to wear any existing footwear will put you at high-risk for a recurrent infection. Your left foot also appears to have a superimposed bacterial infection, we are treating you with a 7 day course of doxycycline, please take this twice a day as prescribed until it is finished. You should take alternating (staggered) doses of ibuprofen 600mg and Tylenol 1000mg every 4 hours as needed for any additional pain. This condition requires close follow up for continued monitoring to resolution, and additional intervention as deemed necessary. Please call both the Podiatry and dermatology clinics at the numbers provided to schedule appointments to follow up this condition and ensure resolution. Please also follow up with your primary care physician for re-evaluation, additional management of your symptoms, and continued preventative care. If you do not have a primary care physician, please call the [facility] at [phone] to establish a new primary care physician. While waiting to establish your new primary care physician, you can call our Walk-in Care Clinic at [phone] for non-emergency needs. Please return to the emergency department if you develop a severe or sudden change in your symptoms, a fever over 100.4 that does not improve with Tylenol or Ibuprofen, recurrent vomiting, or any other new or worsening symptoms or concerns. Prescriptions: New fluconazole 150 mg tablet 150 mg PO QWEEK Qty: 4 0RF doxycycline hyclate 100 mg tablet 100 mg PO BID Qty: 14 0RF clotrimazole 1 % cream 1 appl topical BID 28 Days Qty: 90 0RF No Action azithromycin [Zithromax] 250 mg tablet 250 mg PO DAILY 4 Days Qty: 4 0RF Rx Instructions: start on day 2 of therapy acetaminophen 500 mg tablet 1,000 mg PO QID PRN (Reason: pain or fever) Qty: 30 0RF albuterol sulfate 90 mcg/actuation HFA aerosol inhaler 2 puff inhalation Q4-6H PRN (Reason: shortness of breath or wheezing) Qty: 6.7 0RF prednisone 20 mg tablet 60 mg PO DAILY 3 Days Qty: 9 0RF prednisone 20 mg tablet 20 mg PO DAILY 7 Days Qty: 7 0RF albuterol sulfate 90 mcg/actuation HFA aerosol inhaler 1 inh inhalation QID PRN (Reason: shortness of breath or wheezing) Qty: 8.5 0RF miconazole nitrate [Antifungal (miconazole)] 2 % cream 1 appl topical BID Qty: 42.5 0RF [place] [facility] [place] Group, [place]] Clinical Impression: Tinea pedis [facility] [Outside] Clinical Impression: Tinea pedis Print Language: Moroccan
[2025-06-01 17:34] LABS: MANUAL DIFF FLAG NO
[2025-06-01 17:49] LABS: Alanine Aminotransferase 23 U/L (0-31); Albumin Level 4.7 g/dL (3.5-5.0); Alkaline Phosphatase 82 U/L (39-117); Anion Gap 13 (12-20); Aspartate Amino Transferase 18 U/L (5-31); Blood Urea Nitrogen 17 mg/dL (9-16); Calcium 9.6 mg/dL (8.4-10.2); Carbon Dioxide 23 mmol/L (22-29); Chloride 110 mmol/L (96-108); Creatinine Clr Calc Pharmacy 90.2; Estimated Glomerular Filt Rate > 60; Potassium 3.8 mmol/L (3.3-5.1); Sodium 142 mmol/L (135-145); Total Protein 7.8 g/dL (6.5-8.0)
[2025-06-01 18:00] LABS: Hematocrit 39.8 % (37.0-47.0); Hemoglobin 12.4 g/dl (12.0-16.0); Imm Gran Abs Auto 0.11 X10*3/uL (0.00-0.03); Imm Gran Pct Auto 0.9 % (0.0-0.4); Lymphocytes Absolute Auto 3.3 X10*3/uL (1.2-4.9); Mean Corpuscular HGB Conc 31.2 g/dl (31.0-35.0); Mean Corpuscular Hemoglobin 22.8 pg (27.0-33.0); Mean Corpuscular Volume 73.0 fL (80.0-98.0); NRBC Abs Auto 0.000 X10*3/uL (0.0-0.012); NRBC Pct Auto 0.0 /100WBC (0.0-0.2); Platelet Count 281 X10*3/uL (160-400); Red Blood Count 5.45 X10*6/uL (4.20-5.50); White Blood Count 12.4 X10*3/uL (4.8-10.8)
[2025-06-01 18:15] VITALS: BP 133/92; PULSE 78; RESP 18; TEMP 36.4; O2SAT 95
[2025-06-01 18:17] LABS: Resp Syncy Virus RNA Qual PCR NEGATIVE (Negative); SARS COV2 PCR INHOUSE NEGATIVE (Negative)
[2025-06-01 19:29] VITALS: BP 120/83; PULSE 87; RESP 18; TEMP 36.5; O2SAT 99
[2025-06-01 21:27] VITALS: BP 137/83; PULSE 86; RESP 18; O2SAT 100
--- NOTE | 2025-06-01 21:50 | PC.NURSE ---
Pt's feet scrubbed with surgical scrub brush to remove dry skin before discharge.
[2025-06-01 21:51] VITALS: BP 137/83; PULSE 86; RESP 18; TEMP -17.7; TEMP 0; O2SAT 100
== END 2025-06-01 21:51 | disposition home or self-care (01) ==
PROVIDERS: Nurse Practitioner Family; Emergency Provider Emergency Medicine Emergency Medical Services
DX: B35.3 Tinea pedis (principal); Z03.818 Encounter for observation for suspected exposure to other biological agents ruled out
CPT/HCPCS: 36415; 80048; 80076; 85025; 87637; 99283; 99284